=== PATIENT | male | born 1980 | race Caucasian/White ===

== ENCOUNTER 2017-09-27 08:42 | Emergency (ER) | payer MEDICARE, MEDICAID ==
[~2017-09-27] VITALS: Ht 172.7 cm; Wt 68.0 kg
[~2017-09-27 08:42] MED LIST: ? ANTIBIOTIC; ALPRAZOLAM 0.0.25 M1; ALPRAZOLAM 0.50.5 M1 PO; AMITRIPTYLINE H25 M2 PO; BUSPIRONE PO; CIPROFLOXACIN500 M1 PO; CLEOCIN HCL300 MG PO; DARVOCET-N 1001 EACH PO; DOXEPIN HCL100 MG PO; FLUTICASONE PRO16 GM NS; GABAPENTIN600 M1 PO; GEMFIBROZIL 60600 M1 PO; HYDROCODONE; HYDROCODONE-AP1 EAC6 PO; IBUPROFEN 600600 M1 PO; IBUPROFEN 800800 M1 PO; IBUPROFEN 800800 MG PO; KEFLEX500 M1 PO; LEVOFLOXACIN250 MG PO; METOCLOPRAMIDE10 MG PO; MIRALAX255 GM PO; MIRAPEX 0.250.25 M1 PO; Magic Mouthwash PO; NAPROSYN500 MG PO; NEURONTIN600 MG PO; NEXIUM20 M1 PO; NEXIUM40 MG PO; NORCO 5-325 TA1 EAC1 PO; NORCO 5-325 TA1 EACH PO; PERCOCET 5-3251 EACH PO; PERCOCET PO; PHENERGAN 25 MG25 M1 PO; PHENERGAN 25 MG25 MG PO; PHENERGAN25 M2 RC; PHENERGAN25 MG RE; PHENERGAN50 MG RC; PROTONIX40 M2 PO; PROTONIX40 MG PO; PROZAC20 MG PO; Q SORB CO Q PO; REGLAN 10 MG TA10 MG PO; SEROQUEL XR400 M1 PO; SEROQUEL400 MG PO; STOOL SOFTENER50 MG; VALIUM5 MG PO; XANAX 0.25 MG0.25 MG PO; XANAX 0.5 MG0.5 MG PO; ZOFRAN ODT4 MG PO
[2017-09-27] MEDS ORDERED: IBUPROFEN 800800 MG PO (09:31)
[2017-09-27 09:40] VITALS: BP 122/79
== END 2017-09-27 09:40 | disposition home or self-care (01) ==
LOC: M.ERS 08:42
DX: S63.681A Other sprain of right thumb, initial encounter (principal); F31.9 Bipolar disorder, unspecified; G89.29 Other chronic pain; R10.9 Unspecified abdominal pain; Z88.0 Allergy status to penicillin; Z88.6 Allergy status to analgesic agent; X58.XXXA Exposure to other specified factors, initial encounter; Y93.89 Activity, other specified; Y92.89 Other specified places as the place of occurrence of the external cause; Y99.8 Other external cause status

== ENCOUNTER 2017-12-30 16:38 | Emergency (ER) | payer MEDICARE, MEDICAID ==
[~2017-12-30] VITALS: Ht 172.7 cm; Wt 70.8 kg
[2017-12-30] MEDS ORDERED: ULTRACET TABLET1 TAB PO (16:52)
[2017-12-30] MEDS ORDERED: DOXEPIN 10 MG C10 MG PO (16:52)
[2017-12-30] MEDS ORDERED: KEFLEX500 M1 PO (16:52)
[2017-12-30] MEDS ORDERED: NORCO 5-325 TA1 EACH PO (17:06)
[2017-12-30 17:08] VITALS: BP 127/85
== END 2017-12-30 17:18 | disposition home or self-care (01) ==
LOC: M.ERS 16:38
DX: G89.18 Other acute postprocedural pain (principal); K14.6 Glossodynia; M79.652 Pain in left thigh; F31.9 Bipolar disorder, unspecified; G89.29 Other chronic pain; R10.9 Unspecified abdominal pain; Z88.0 Allergy status to penicillin; Z88.6 Allergy status to analgesic agent

== ENCOUNTER 2018-01-06 14:16 | Emergency (ER) | payer MEDICARE, MEDICAID ==
[~2018-01-06] VITALS: Ht 172.7 cm; Wt 68.0 kg
[~2018-01-06 14:16] MED LIST changes: +DOXEPIN 10 MG C10 MG PO; +ULTRACET TABLET1 TAB PO
[2018-01-06] MEDS ORDERED: ULTRAM 50MG TAB50 MG PO (14:48)
[2018-01-06] MEDS ORDERED: PREDNISONE 10 M10 MG PO (14:48)
[2018-01-06 15:07] VITALS: BP 148/80
== END 2018-01-06 15:08 | disposition home or self-care (01) ==
LOC: M.ERS 14:16
DX: S01.502A Unspecified open wound of oral cavity, initial encounter (principal); F20.0 Paranoid schizophrenia; F31.9 Bipolar disorder, unspecified; G89.29 Other chronic pain; R10.9 Unspecified abdominal pain; Z88.0 Allergy status to penicillin; Z88.6 Allergy status to analgesic agent; X58.XXXA Exposure to other specified factors, initial encounter; Y93.89 Activity, other specified; Y92.89 Other specified places as the place of occurrence of the external cause; Y99.8 Other external cause status

== ENCOUNTER 2018-07-24 14:43 | Emergency (ER) | payer MEDICARE, MEDICAID ==
[~2018-07-24] VITALS: Ht 172.7 cm; Wt 67.6 kg
[~2018-07-24 14:43] MED LIST changes: +PREDNISONE 10 M10 MG PO; +ULTRAM 50MG TAB50 MG PO
[2018-07-24] MEDS ORDERED: NEXIUM40 MG PO (14:57)
[2018-07-24 15:11] LABS: ABSOLUTE BASOPHILS 0.1 thou/uL (0.0-0.2); ABSOLUTE LYMPHOCYTES 1.3 thou/uL (0.8-5.3); ABSOLUTE MONOCYTES 0.9 thou/uL (0.0-1.2); ABSOLUTE NEUTROPHILS 9.2 thou/uL (1.6-8.1); BASOPHILS 0.5 %; EOSINOPHILS 0.3 %; HEMATOCRIT 48.4 % (42.0-52.0); LYMPHOCYTES 11.1 %; MCH 28.3 pg (26.0-34.0); MCHC 33.1 g/dL (28.0-37.0); MCV 85.7 fL (80.0-100.0); MONOCYTES 8.1 %; MPV 8.7 fl. (7.2-11.1); NUCLEATED RBCS 0 /100WBC; PLATELET COUNT* 247 thou/uL (150-400); RBC 5.65 mil/uL (4.50-6.00); RDW-CV 14.4 % (10.5-14.5); WBC 11.4 thou/uL (4.0-11.0)
[2018-07-24 15:19] LABS: CALCIUM 9.3 mg/dL (8.5-10.1); CREATININE 1.5 mg/dL (0.6-1.3); POTASSIUM 3.8 mmol/L (3.5-5.1)
[2018-07-24 15:23] LABS: ALBUMIN 4.7 g/dL (3.4-5.0); TOTAL BILIRUBIN 0.5 mg/dL (<0.1-1.0); TOTAL PROTEIN 8.2 g/dL (6.4-8.2)
[2018-07-24 15:42] VITALS: BP 175/108
== END 2018-07-24 15:43 | disposition left against medical advice (07) ==
LOC: M.ERS 14:43
PROVIDERS: Physician Assistant
DX: N17.9 Acute kidney failure, unspecified (principal); R10.13 Epigastric pain; F31.9 Bipolar disorder, unspecified; Z88.0 Allergy status to penicillin; Z88.5 Allergy status to narcotic agent

== ENCOUNTER 2018-10-31 21:39 | Emergency (ER) | payer MEDICARE, MEDICAID ==
[~2018-10-31] VITALS: Ht 172.7 cm; Wt 63.5 kg
[~2018-10-31 21:39] MED LIST changes: +PEPCID20 MG PO
[2018-10-31] MEDS ORDERED: BACTRIM DS TAB1 EACH PO (22:05)
[2018-10-31 22:51] VITALS: BP 111/82
== END 2018-10-31 22:51 | disposition home or self-care (01) ==
LOC: M.ERS 21:39
DX: L60.0 Ingrowing nail (principal); F20.0 Paranoid schizophrenia; F31.9 Bipolar disorder, unspecified; G89.29 Other chronic pain; R10.9 Unspecified abdominal pain; Z88.0 Allergy status to penicillin; Z88.5 Allergy status to narcotic agent

== ENCOUNTER → 2019-03-13 | Outpatient (CLI) | payer MEDICARE, MEDICAID ==
[~2019-03-13] MED LIST changes: +BACTRIM DS TAB1 EACH PO
[2019-03-13 08:49] LABS: ABSOLUTE LYMPHOCYTES 1.2 thou/uL (0.8-5.3); ABSOLUTE MONOCYTES 0.5 thou/uL (0.0-1.2); ABSOLUTE NEUTROPHILS 4.3 thou/uL (1.6-8.1); BASOPHILS 0.3 %; EOSINOPHILS 0.6 %; HEMATOCRIT 45.8 % (42.0-52.0); HEMOGLOBIN 15.4 gm/dL (14.0-18.0); LYMPHOCYTES 19.8 %; MCH 28.7 pg (26.0-34.0); MCHC 33.7 g/dL (28.0-37.0); MCV 85.2 fL (80.0-100.0); MONOCYTES 8.5 %; MPV 7.7 fl. (7.2-11.1); NUCLEATED RBCS 0 /100WBC; PLATELET COUNT* 243 thou/uL (150-400); POLYS 70.8 %; RBC 5.38 mil/uL (4.50-6.00)
[2019-03-13 09:52] LABS: CHOLESTEROL 154 mg/dL (<200); GLUCOSE 93 mg/dL (70-99); HDL CHOLESTEROL 41 mg/dL (>40); LDL CHOLESTEROL 97 mg/dL (<100); TC:HDL 3.8 Ratio (Not establshd); TRIGLYCERIDE 83 mg/dL (<150); VLDL 17 mg/dL (<40)
[2019-03-13 09:53] LABS: SERUM ASSESSMENT Clear
== END ==
LOC: M.LAB 08:26
PROVIDERS: Psychiatry & Neurology Psychiatry
DX: F25.0 Schizoaffective disorder, bipolar type (principal)